=== PATIENT | male | born 1975 | race Caucasian/White ===

== ENCOUNTER 2022-02-27 13:20 | Emergency (ER) | payer MEDICAID ==
[~2022-02-27] VITALS: Ht 170.2 cm; Wt 97.7 kg
[2022-02-27 13:29] VITALS: BP 146/101
== END 2022-02-27 15:08 | disposition home or self-care (01) ==
LOC: ER 13:20
DX: M54.2 Cervicalgia (principal); R20.0 Anesthesia of skin; G89.29 Other chronic pain; M54.59 Other low back pain; M54.9 Dorsalgia, unspecified; V98.8XXA Other specified transport accidents, initial encounter; Y93.89 Activity, other specified; Y92.89 Other specified places as the place of occurrence of the external cause; Y99.8 Other external cause status
CPT/HCPCS: 72040; 99283

== ENCOUNTER 2022-11-01 23:33 | Inpatient (IN) | payer MEDICAID ==
[~2022-11-01] VITALS: Ht 170.2 cm; Wt 77.3 kg
[2022-11-02 00:12] LABS: BASOPHILS # (AUTO) 0.1 X10'3 (0-0.2); BASOPHILS % (AUTO) 0.3 % (0-1); EOSINOPHILS # (AUTO) 0.1 X10'3 (0-0.9); EOSINOPHILS % (AUTO) 0.8 % (0-6); HEMATOCRIT 37.4 % (42.0-52.0); HEMOGLOBIN 12.8 g/dl (14.0-17.9); LYMPHOCYTES % (AUTO) 5.8 % (21-51); MEAN CORPUSCULAR HEMOGLOBIN 30.7 PG (27.0-31.0); MEAN CORPUSCULAR HGB CONC 34.3 g/dL (33.0-36.5); MEAN CORPUSCULAR VOLUME 89.4 FL (78-98); MONOCYTES # (AUTO) 1.1 X10'3 (0-0.9); MONOCYTES % (AUTO) 6.4 % (2-12); NEUTROPHILS # (AUTO) 14.5 X10'3 (1.8-7.7); NEUTROPHILS % (AUTO) 86.7 % (42-75); PLATELET COUNT 238 X10'3 (140-440); RED BLOOD COUNT 4.18 X10'6 (4.70-6.10); RED CELL DISTRIBUTION WIDTH 12.8 % (11.5-14.5); WHITE BLOOD COUNT 16.7 X10'3 (4.5-11.0)
[2022-11-02 00:34] LABS: ALANINE AMINOTRANSFERASE 62 U/L (12-78); ALBUMIN 2.9 G/DL (3.4-5.0); ALBUMIN/GLOBULIN RATIO 0.6 (1.1-1.5); ALKALINE PHOSPHATASE 83 IU/L (46-116); ANION GAP 9 (8-16); ASPARTATE AMINO TRANSFERASE 32 U/L (10-37); BLOOD UREA NITROGEN 10 MG/DL (7-18); BUN/CREATININE RATIO 9.2 (5.4-32.0); CALCIUM 9.2 MG/DL (8.5-10.1); CHLORIDE 96 MMOL/L (99-107); CREATININE 1.09 MG/DL (0.60-1.10); GLUCOSE 205 MG/DL (70-104); MAGNESIUM 1.7 MG/DL (1.5-2.4); POTASSIUM 3.6 MMOL/L (3.5-5.1); SODIUM 130 MMOL/L (135-145); TOTAL CARBON DIOXIDE 25.3 MMOL/L (24-32); TOTAL PROTEIN 7.7 G/DL (6.4-8.2); eGFR 72 ML/MIN
--- NOTE | 2022-11-02 01:00 | NUR ---
Documented assessment reviewed, contract technical writer agrees with this assessment.
[2022-11-02 01:20] LABS: C-REACTIVE PROTEIN 6.76 MG/DL (0.0-0.5)
[2022-11-02 01:23] LABS: ETHANOL < 0.010 GM/DL (0.0-0.010)
[2022-11-02] MEDS ORDERED: normal saline 1000ml 1,000 ML IVB ONE ×2 (02:10→03:55)
--- NOTE | 2022-11-02 02:45 | NUR ---
Attempted to encourage pt to use the urinal several times. Pt nodded and then continued to fall back asleep. Attempted to use the straight cath on the pt, and it was unsuccessful. An additional attempt at using the urinal with the pt. Unsuccessful. Will attempt at obtaining urine later after NS bolus infusion ends.
--- NOTE | 2022-11-02 04:12 | NUR ---
ATTEMPTED TO OBTAIN URINE FROM PT. UNABLE TO. HUNG UP ANOTHER LITER OF NS PER EDMD ORDERS. WILL BLADDER SCAN PT.
[2022-11-02] MEDS ORDERED: CefTRIAXone/D5W-Rocephin 1gm 50 ML IV ONE (05:30)
[2022-11-02] MEDS ORDERED: azithromycin/NS 500mg/250ml 250 ML IV ONE (05:30)
[2022-11-02 06:23] LABS: URINE AMPHETAMINE SCREEN POSITIVE (Neg); URINE BARBITUATE SCREEN NEGATIVE (Neg); URINE BENZODIAZEPINES SCREEN NEGATIVE (Neg); URINE CANNABINOID SCREEN NEGATIVE (Neg); URINE COCAINE SCREEN NEGATIVE (Neg); URINE METHADONE SCREEN NEGATIVE (Neg); URINE OPIATE SCREEN NEGATIVE (Neg); URINE PHENCYCLIDINE SCREEN NEGATIVE (Neg)
[2022-11-02] MEDS ORDERED: HYDROcodone/acetaminophen 10/325mg tab PO PRN (08:25)
[2022-11-02] MEDS ORDERED: morphine 2 MG/ML inj. syringe IV PRN ×2 (08:25)
[2022-11-02] MEDS ORDERED: magnesium 4gm in 100ml NS 100 ML IV PRN (08:25)
[2022-11-02] MEDS ORDERED: mag hydrox/Alum hydrox/simeth 30ml oral suspension PO PRN (08:25)
[2022-11-02] MEDS ORDERED: albuterol 2.5 MG/3 ML nebule NEB PRN (08:25)
[2022-11-02] MEDS ORDERED: ondansetron/PF 4mg/2ml inj IV PRN (08:25)
[2022-11-02] MEDS ORDERED: potassium Cl 20 mEq SR tablet PO PRN ×2 (08:25)
[2022-11-02] MEDS ORDERED: acetaminophen 325mg tablet PO PRN ×2 (08:25)
[2022-11-02] MEDS ORDERED: HYDROcodone/acetaminophen 5mg/325mg tablet PO PRN (08:25)
[2022-11-02] MEDS ORDERED: potassium Cl 40MEQ/1/2NS 520ml 520 ML IV PRN (08:25)
[2022-11-02] MEDS ORDERED: LORazepam 2 mg/ml vial IV PRN (08:55)
[2022-11-02] MEDS ORDERED: haloperidol 5mg tablet PO PRN (08:55)
[2022-11-02] MEDS ORDERED: haloperidol lactate 5mg/ml inj IM PRN (08:55)
[2022-11-02 09:15] LABS: BASOPHILS # (AUTO) 0.1 X10'3 (0-0.2); BASOPHILS % (AUTO) 0.6 % (0-1); EOSINOPHILS # (AUTO) 0.1 X10'3 (0-0.9); HEMATOCRIT 36.4 % (42.0-52.0); HEMOGLOBIN 12.5 g/dl (14.0-17.9); LYMPHOCYTES # (AUTO) 1.2 X10'3 (1.1-4.8); LYMPHOCYTES % (AUTO) 10.9 % (21-51); MEAN CORPUSCULAR HEMOGLOBIN 31.2 PG (27.0-31.0); MEAN CORPUSCULAR HGB CONC 34.4 g/dL (33.0-36.5); MEAN CORPUSCULAR VOLUME 90.9 FL (78-98); MEAN PLATELET VOLUME 10.9 FL (7.4-10.4); MONOCYTES # (AUTO) 0.9 X10'3 (0-0.9); MONOCYTES % (AUTO) 8.5 % (2-12); NEUTROPHILS # (AUTO) 8.4 X10'3 (1.8-7.7); PLATELET COUNT 180 X10'3 (140-440); RED BLOOD COUNT 4.01 X10'6 (4.70-6.10); RED CELL DISTRIBUTION WIDTH 13.4 % (11.5-14.5); WHITE BLOOD COUNT 10.7 X10'3 (4.5-11.0)
--- NOTE | 2022-11-02 09:28 | NUR ---
RT AT BEDSIDE.
[2022-11-02 09:29] LABS: BLOOD UREA NITROGEN 7 MG/DL (7-18); BUN/CREATININE RATIO 7.8 (5.4-32.0); CHLORIDE 100 MMOL/L (99-107); GLUCOSE 123 MG/DL (70-104); POTASSIUM 3.6 MMOL/L (3.5-5.1); SODIUM 134 MMOL/L (135-145); eGFR 90 ML/MIN
[2022-11-02 10:12] LABS: ALANINE AMINOTRANSFERASE 49 U/L (12-78); ALBUMIN 2.5 G/DL (3.4-5.0); ALBUMIN/GLOBULIN RATIO 0.5 (1.1-1.5); ALKALINE PHOSPHATASE 82 IU/L (46-116); ANION GAP 5 (8-16); ASPARTATE AMINO TRANSFERASE 28 U/L (10-37); BILIRUBIN,TOTAL 0.6 MG/DL (0.1-1.0); CALCIUM 8.6 MG/DL (8.5-10.1); TOTAL CARBON DIOXIDE 29.3 MMOL/L (24-32); TOTAL PROTEIN 7.1 G/DL (6.4-8.2)
--- NOTE | 2022-11-02 11:03 | NUR ---
Pt is coughing. Paged RT for a breathing tx at 11:03 as per pt request.
--- NOTE | 2022-11-02 11:09 | NUR ---
RT at bedside. Pt using urinal.
[2022-11-02] MEDS: ipratropium/albuterol 3ml nebule NEB PRN (11:10)
[2022-11-02] MEDS ORDERED: OMEP20CA16 PO (13:58)
[2022-11-02] MEDS ORDERED: GABA600T13 PO (13:58)
--- NOTE | 2022-11-02 16:09 | NUR ---
1100cc urine from urinal. Pt denies pain, but requesting cough drop.
[2022-11-02 19:50] VITALS: BP 130/79
--- NOTE | 2022-11-02 19:50 | NUR ---
PATIENT ADMITTED TO ROOM 346B FROM ER FOR SEPSIS AND PNEUMONIA. PLACED COMFORTABLE IN BED. VITAL SIGNS TAKEN AND RECORDED.
[2022-11-02] MEDS ORDERED: enoxaparin 40mg/0.4ml syringe SQ SCH (20:00)
[2022-11-02] MEDS: docusate sod 100mg capsule PO SCH (20:56)
[2022-11-02] MEDS: K and/or MAG REPLACEMENT MC SCH (21:14)
[2022-11-02 23:00] VITALS: BP 126/71
--- NOTE | 2022-11-03 06:11 | NUR ---
Problems reprioritized. Patient report given, questions answered & plan of care reviewed with KURTIS BARCENAS.
[2022-11-03 06:21] LABS: ALANINE AMINOTRANSFERASE 47 U/L (12-78); ALBUMIN 2.4 G/DL (3.4-5.0); ALBUMIN/GLOBULIN RATIO 0.5 (1.1-1.5); ALKALINE PHOSPHATASE 72 IU/L (46-116); ANION GAP 6 (8-16); ASPARTATE AMINO TRANSFERASE 19 U/L (10-37); BILIRUBIN,TOTAL 0.6 MG/DL (0.1-1.0); BLOOD UREA NITROGEN 3 MG/DL (7-18); BUN/CREATININE RATIO 3.5 (5.4-32.0); CHLORIDE 101 MMOL/L (99-107); CREATININE 0.85 MG/DL (0.60-1.10); GLUCOSE 106 MG/DL (70-104); LIPASE 82 U/L (73-393); PHOSPHORUS 4.2 MG/DL (2.3-4.5); POTASSIUM 3.7 MMOL/L (3.5-5.1); SODIUM 136 MMOL/L (135-145); TOTAL CARBON DIOXIDE 29.5 MMOL/L (24-32); eGFR > 90 ML/MIN
--- NOTE | 2022-11-03 06:23 | NUR ---
Patient in room [facility] 346. I have received report from Cristin Amaral RN and had the opportunity to ask questions and assume patient care.
[2022-11-03] MEDS: K and/or MAG REPLACEMENT MC SCH (06:49)
[2022-11-03 07:02] VITALS: BP 124/78
[2022-11-03 07:28] LABS: BASOPHILS % (AUTO) 0.7 % (0-1); EOSINOPHILS # (AUTO) 0.1 X10'3 (0-0.9); EOSINOPHILS % (AUTO) 1.6 % (0-6); HEMATOCRIT 39.1 % (42.0-52.0); HEMOGLOBIN 13.1 g/dl (14.0-17.9); LYMPHOCYTES # (AUTO) 1.2 X10'3 (1.1-4.8); LYMPHOCYTES % (AUTO) 23.3 % (21-51); MEAN CORPUSCULAR HEMOGLOBIN 30.3 PG (27.0-31.0); MEAN CORPUSCULAR HGB CONC 33.4 g/dL (33.0-36.5); MEAN CORPUSCULAR VOLUME 90.8 FL (78-98); MEAN PLATELET VOLUME 10.3 FL (7.4-10.4); MONOCYTES # (AUTO) 0.6 X10'3 (0-0.9); MONOCYTES % (AUTO) 11.3 % (2-12); NEUTROPHILS # (AUTO) 3.4 X10'3 (1.8-7.7); NEUTROPHILS % (AUTO) 63.1 % (42-75); PLATELET COUNT 233 X10'3 (140-440); RED BLOOD COUNT 4.31 X10'6 (4.70-6.10); RED CELL DISTRIBUTION WIDTH 13.1 % (11.5-14.5); WHITE BLOOD COUNT 5.3 X10'3 (4.5-11.0)
[2022-11-03] MEDS: docusate sod 100mg capsule PO SCH (07:55)
[2022-11-03] MEDS ORDERED: CefTRIAXone/D5W-Rocephin 1gm 50 ML IV SCH (08:00)
[2022-11-03] MEDS ORDERED: multivitamins, therapeutics tablet PO SCH (08:00)
[2022-11-03] MEDS ORDERED: azithromycin/NS 500mg/250ml 250 ML IV SCH (08:00)
[2022-11-03] MEDS: ipratropium/albuterol 3ml nebule NEB PRN (10:45)
--- NOTE | 2022-11-03 11:07 | NUR ---
Malnutrition Consult: Pt admit DX sepsis, PNA, hyponatremia secondary to dehydration, and etoh/meth/tobacco abuse per EMR. Pt unsure wt loss hx per RN malnutrition screen w/ normal strength, trace BLE edema, skin intact, appears WD/WN per ER note, and no scaled wt this admit or prior scaled wt hx per EMR. Pt lacks minimum malnutrition criteria at this time. PO 75% initial clear liquids diet advanced to full liquids WL today per EMR. To start routine thiamine, folic acid, MVI today for etoh hx per EMR. LBM 11/02. Will monitor for diet advancement, PO trends, and nutrition intervention needs this admit. Rec: 1. advance diet as medically indicated to regular 2. monitor PO trends for ONS needs as diet advances 3. routine thiamine, folic acid, MVI for etoh hx 4. routine bowel care 5. scaled wt this admit; subsequent weekly wts Addendum: 11/03/22 at [address] Amended: Links added.
[2022-11-03 11:38] VITALS: BP 121/68
[2022-11-03] MEDS ORDERED: BENZ200C53 PO (11:42)
[2022-11-03] MEDS ORDERED: AZIT500T9 PO (11:42)
[2022-11-03] MEDS ORDERED: CEFD300C3 PO (11:42)
[2022-11-03] MEDS ORDERED: OMEP20CA15 PO (11:48)
[2022-11-03] MEDS ORDERED: GABA600T13 PO (11:48)
--- NOTE | 2022-11-03 13:25 | NUR ---
Received discharge orders, reviewed with patient, understanding verbalized. IV removed with cannula intact. Patient walked to lobby with belongings, accompanied by staff and family member.
[2022-11-03] MEDS ORDERED: pneumococcal 23-VAL P-sac vacc 25 mcg/0.5ml vial IMVAC ONE (14:00)
[2022-11-03] MEDS ORDERED: FLU VACC QS2022-23(6MOS UP)/PF 60 MCG/0.5 ML SYRINGE IMVAC ONE (14:00)
[2022-11-04] MEDS ORDERED: LORazepam 1 MG tablet PO PRN (08:55)
[2022-11-04] MEDS ORDERED: LORazepam 2 mg/ml vial IV PRN (08:55)
--- NOTE | 2022-11-04 10:10 | NUR ---
Received order for consult. Patient was discharged. I called patient and left message.
[2022-11-06] MEDS ORDERED: LORazepam 2 mg/ml vial IV PRN (08:55)
[2022-11-06] MEDS ORDERED: LORazepam 1 MG tablet PO PRN (08:55)
[2022-11-07] MEDS ORDERED: thiamine 100mg tablet PO SCH (08:00)
[2022-11-07] MEDS ORDERED: folic acid 1mg tablet PO SCH (08:00)
== END 2022-11-03 13:34 | disposition home or self-care (01) | DRG 720 ==
LOC: ER 23:34 → ED HOLD 11-02 08:32 → EDBEDREQ 11-02 16:32 → SUR 3N 11-02 19:55
PROVIDERS: ADMIT Family Medicine; ATTEND Family Medicine
DX: A41.9 Sepsis, unspecified organism (principal); E87.1 Hypo-osmolality and hyponatremia; J18.9 Pneumonia, unspecified organism; F15.10 Other stimulant abuse, uncomplicated; Z66 Do not resuscitate; K21.9 Gastro-esophageal reflux disease without esophagitis; F17.210 Nicotine dependence, cigarettes, uncomplicated; Z83.3 Family history of diabetes mellitus; Z80.8 Family history of malignant neoplasm of other organs or systems; Z87.442 Personal history of urinary calculi; Z88.5 Allergy status to narcotic agent
CPT/HCPCS: 36415; 71045; 80053; 80305; 80320; 82948; 83036; 83605; 83690; 83735; 83880; 84100; 84145; 84484; 85025; 85610; 85651; 86140; 87040; 87081; 87502; 87503; 87635; 90686; 90732; 93005; 93971; 94640; 94760; 99285; A4615; C9803; G0378; J0456; J0696; J1650; J7030; J7040; U0003

== ENCOUNTER 2023-01-24 10:03 | Emergency (ER) | payer MEDICAID ==
[~2023-01-24] VITALS: Ht 167.6 cm; Wt 79.0 kg
[~2023-01-24 10:03] MED LIST: AZIT500T9 PO; BENZ200C53 PO; CEFD300C3 PO; GABA600T13 PO; OMEP20CA15 PO; OMEP20CA16 PO
[2023-01-24 10:33] VITALS: BP 120/91
--- NOTE | 2023-01-24 10:49 | NUR ---
Pt in FTA, Pt c/o R hand swelling x6 days. C/o numbness and pain. Pt educated to POC. Pt in agreement. Pending providers eval and treatment.
[2023-01-24] MEDS ORDERED: PER5325T PO ×3 (11:37→13:53)
[2023-01-24 11:56] LABS: ALANINE AMINOTRANSFERASE 26 U/L (12-78); ALBUMIN 3.3 G/DL (3.4-5.0); ALBUMIN/GLOBULIN RATIO 0.8 (1.1-1.5); ALKALINE PHOSPHATASE 102 IU/L (46-116); ANION GAP 9 (8-16); ASPARTATE AMINO TRANSFERASE 26 U/L (10-37); BLOOD UREA NITROGEN 11 MG/DL (7-18); BUN/CREATININE RATIO 11.3 (10.0-20.0); CALCIUM 9.3 MG/DL (8.5-10.1); CHLORIDE 101 MMOL/L (99-107); CREATININE 0.97 MG/DL (0.60-1.10); GLUCOSE 119 MG/DL (70-104); POTASSIUM 3.9 MMOL/L (3.5-5.1); SODIUM 136 MMOL/L (135-145); TOTAL CARBON DIOXIDE 26.2 MMOL/L (24-32); TOTAL PROTEIN 7.5 G/DL (6.4-8.2); eGFR 82 ML/MIN
[2023-01-24] MEDS ORDERED: iohexol 300mg/ml 100ml inj. ONE (12:11)
[2023-01-24 13:05] LABS: BASOPHILS % (AUTO) 0.6 % (0-1); EOSINOPHILS # (AUTO) 0.1 X10'3 (0-0.9); EOSINOPHILS % (AUTO) 0.9 % (0-6); HEMATOCRIT 41.2 % (42.0-52.0); HEMOGLOBIN 14.2 g/dl (14.0-17.9); LYMPHOCYTES # (AUTO) 1.4 X10'3 (1.1-4.8); LYMPHOCYTES % (AUTO) 17.5 % (21-51); MEAN CORPUSCULAR HEMOGLOBIN 30.3 PG (27.0-31.0); MEAN CORPUSCULAR HGB CONC 34.5 g/dL (33.0-36.5); MEAN CORPUSCULAR VOLUME 87.8 FL (78-98); MONOCYTES # (AUTO) 0.9 X10'3 (0-0.9); MONOCYTES % (AUTO) 11.1 % (2-12); NEUTROPHILS # (AUTO) 5.5 X10'3 (1.8-7.7); NEUTROPHILS % (AUTO) 69.9 % (42-75); RED BLOOD COUNT 4.69 X10'6 (4.70-6.10); RED CELL DISTRIBUTION WIDTH 13.3 % (11.5-14.5); WHITE BLOOD COUNT 7.8 X10'3 (4.5-11.0)
[2023-01-24] MEDS ORDERED: SULF1TAB49 PO (13:53)
[2023-01-24] MEDS ORDERED: AMOX-580 PO (13:53)
[2023-01-24] MEDS ORDERED: ampicillin/sulbac 3gm/NS 100ml 100 ML IV SCH (14:00)
== END 2023-01-24 14:02 | disposition home or self-care (01) ==
LOC: ER 10:04
DX: L03.113 Cellulitis of right upper limb (principal); K21.9 Gastro-esophageal reflux disease without esophagitis; G89.29 Other chronic pain; M54.9 Dorsalgia, unspecified; F17.200 Nicotine dependence, unspecified, uncomplicated; F15.10 Other stimulant abuse, uncomplicated; Z88.5 Allergy status to narcotic agent; Z79.899 Other long term (current) drug therapy; Z79.1 Long term (current) use of non-steroidal anti-inflammatories (NSAID); Z79.2 Long term (current) use of antibiotics
CPT/HCPCS: 73201; 80053; 83605; 85025; 87040; 99285; J3490; Q9967

== ENCOUNTER 2023-06-26 14:10 | Emergency (ER) | payer MEDICAID ==
[~2023-06-26] VITALS: Ht 170.2 cm; Wt 84.1 kg
[2023-06-26 14:26] VITALS: BP 131/82; PULSE 81; RESP 18; TEMP 97.9; O2SAT 100
== END 2023-06-26 19:02 | disposition left against medical advice (07) ==
LOC: ER 14:11
DX: M79.644 Pain in right finger(s) (principal); Z53.21 Procedure and treatment not carried out due to patient leaving prior to being seen by health care provider
CPT/HCPCS: 99281

== ENCOUNTER 2025-02-07 20:42 | Emergency (ER) | payer MEDICAID ==
[~2025-02-07 20:42] MED LIST changes: +GABA-1405 PO; -GABA600T13 PO
== END 2025-02-07 22:23 | disposition left against medical advice (07) ==
LOC: ER 20:43
DX: Z00.8 Encounter for other general examination (principal); Z53.21 Procedure and treatment not carried out due to patient leaving prior to being seen by health care provider

== ENCOUNTER 2025-02-09 22:03 | Emergency (ER) | payer MEDICAID ==
[~2025-02-09] VITALS: Ht 167.6 cm; Wt 71.2 kg
[2025-02-09 22:11] VITALS: TEMP 97.7
[2025-02-09 22:40] LABS: BASOPHILS # (AUTO) 0.1 X10'3 (0-0.2); BASOPHILS % (AUTO) 0.8 % (0-1); EOSINOPHILS # (AUTO) 0.2 X10'3 (0-0.9); EOSINOPHILS % (AUTO) 2.1 % (0-6); HEMATOCRIT 42.9 % (42.0-52.0); HEMOGLOBIN 14.7 g/dl (14.0-17.9); LYMPHOCYTES # (AUTO) 1.3 X10'3 (1.1-4.8); LYMPHOCYTES % (AUTO) 16.1 % (21-51); MEAN CORPUSCULAR HGB CONC 34.3 g/dL (33.0-36.5); MEAN CORPUSCULAR VOLUME 87.3 FL (78-98); MEAN PLATELET VOLUME 8.9 FL (7.4-10.4); MONOCYTES # (AUTO) 0.6 X10'3 (0-0.9); MONOCYTES % (AUTO) 8.1 % (2-12); NEUTROPHILS # (AUTO) 5.8 X10'3 (1.8-7.7); NEUTROPHILS % (AUTO) 72.9 % (42-75); PLATELET COUNT 228 X10'3 (140-440); RED BLOOD COUNT 4.91 X10'6 (4.70-6.10); RED CELL DISTRIBUTION WIDTH 13.8 % (11.5-14.5)
[2025-02-09 22:48] LABS: ALBUMIN 3.6 G/DL (3.4-5.0); ANION GAP 10 (8-16); BLOOD UREA NITROGEN 13 MG/DL (7-18); BUN/CREATININE RATIO 10.7 (10.0-20.0); CHLORIDE 103 MMOL/L (99-107); CREATININE 1.21 MG/DL (0.60-1.10); GLUCOSE 187 MG/DL (70-104); POTASSIUM 3.7 MMOL/L (3.5-5.1); SODIUM 140 MMOL/L (135-145); eCRCL 65 ML/MIN; eGFR 63 ML/MIN
[2025-02-10] MEDS ORDERED: SULF1TAB49 PO (00:35)
--- NOTE | 2025-02-10 00:35 | Physician Documentation ---
History of Present Illness ~ Chief Complaint: Arm Pain Stated Complaint: ARM PAIN Time Seen by MD: 00:25 Primary Medical Doctor: jose saez, [facility] HPI This is a 49-year-old gentleman who presents for evaluation of pain, swelling, redness in his right upper extremity/forearm. He states that �it might have been a spider bite... It might have been because I slammed dope�. Similar to prior cellulitis. No particular palliating or aggravating factors. Did not attempt to treat it. Denies any fever or chills. Denies any other symptoms. Uses drugs. Tetanus within 5 years: Yes (2022) Medication Reconciliation Allergies: Coded Allergies: codeine (Verified Allergy, Unknown, vomiting, 02/09/25) Scheduled Azithromycin (Azithromycin), 1 TAB PO DAILY Cefdinir* (Cefdinir*), 1 CAP PO Q12H Gabapentin (Gabapentin), 1 TAB PO TID, (Reported) Gabapentin (Gabapentin), 1 TAB PO Q8H Omeprazole (Omeprazole), 1 CAP PO DAILY, (Reported) Omeprazole (Omeprazole), 1 CAP PO DAILY Scheduled PRN Benzonatate (Benzonatate), 1 CAP PO Q8H PRN for cough & congestion Past Medical History Past Medical History: Pneumonia, GERD, Chronic Pain, Chronic Back Pain Past Surgical History: orthopedic surgeries Patient History: FH: cancer FATHER FH: diabetes mellitus MOTHER FH: skin cancer MOTHER Alcohol Use: Abuse Drug Use: methamphetamine Lives In: Home Review of Systems ROS 10 point review of systems was performed and unless noted above in HPI is negative for acute process/complaint. Physical Exam Vital Signs: Temperature: 97.7, Source: Temporal, Heart Rate: 0, Respiratory Rate: 15, BP: 156/98, Pulse Oximetry: 100, Weight: 71.150 Physical Exam Physical examination: GENERAL: Awake, alert, oriented, GCS 15, no apparent distress, non-toxic appe aring, answers questions, follows commands appropriately. HEENT: Atraumatic, normocephalic, pupils equal, extraocular muscles intact Active gross movements, sclerae anicteric, mucus membranes moist, no stridor. NECK: Midline, no JVD CARDIOVASCULAR: Good skin perfusion without evidence of pallor, mottling. PULMONARY: Nonlabored, symmetric chest rise, no audible wheezing, no accessory muscle use, no respiratory distress, speaking in full sentences. GASTROINTESTINAL: Not distended. NEUROLOGIC: Lucid with normal mental status. Normal facial symmetry. Moves all extremities symmetrically and with purpose. No truncal ataxia. Speech is fluid without evidence of dysarthria or aphasia, no focal deficits appreciated. EXTREMITIES: Acute deformities Skin: warm, dry PSYCHIATRIC: Normal affect, normal insight, normal concentration. Focused exam: Right upper forearm was examined. There is erythema, calor, without crepitus or violaceous changes, no fluctuance. Neurovascularly intact distally. Progress Results/Orders Results/Orders Orders - MILTON SALGADO DO Culture Blood (02/09/25 22:13) Urinalysis, Cult If Indicated (02/09/25 22:13) Monitor (02/09/25 22:13) Oxygen (02/09/25 22:13) Saline Lock (02/09/25 22:13) Lactic,2hr (02/09/25 23:58) Completed Orders - MILTON SALGADO DO Cbc/Diff (02/09/25 22:13) Procalcitonin (02/09/25 22:13) BMP (02/09/25 22:13) Lacticsepsis (02/09/25 22:13) Vital Signs 02/09/25 22:11 Temp 97.7 Pulse 0 Resp 15 B/P (MAP) 156/98 Pulse Ox 100 Laboratory Tests Test 02/09/25 22:28 02/09/25 23:59 White Blood Count 8.0 Red Blood Count 4.91 Hemoglobin 14.7 Hematocrit 42.9 Mean Corpuscular Volume 87.3 Mean Corpuscular Hemoglobin 30.0 Mean Corpuscular Hemoglobin Concent 34.3 Red Cell Distribution Width 13.8 Platelet Count 228 Mean Platelet Volume 8.9 Neutrophils (%) (Auto) 72.9 Lymphocytes (%) (Auto) 16.1 L Monocytes (%) (Auto) 8.1 Eosinophils (%) (Auto) 2.1 Basophils (%) (Auto) 0.8 Neutrophils # (Auto) 5.8 Lymphocytes # (Auto) 1.3 Monocytes # (Auto) 0.6 Eosinophils # (Auto) 0.2 Basophils # (Auto) 0.1 CBC Comment Sodium Level 140 Potassium Level 3.7 Chloride Level 103 Carbon Dioxide Level 27.0 Anion Gap 10 Blood Urea Nitrogen 13 Creatinine 1.21 H Estimated GFR/1.73 m2 63 BUN/Creatinine Ratio 10.7 Glucose Level 187 H Lactic Acid Level 2.8 H Calcium Level 9.0 Albumin 3.6 Procalcitonin < 0.05 Chemistry Comments Medical Decision Making Findings Facility Status: [facility], [facility] process The plan was discussed with the patient, who demonstrates clear understanding of the plan and is in agreement with the plan unless otherwise noted in the chart. All questions have been answered, all concerns were addressed unless otherwise documented. I was available throughout their ED stay for frequent reassessment and questions. Differential Diagnoses (considered and possible or likely): [Right forearm cellulitis, less likely abscess, less likely necrotizing fasciitis, clinically highly unlikely to be osteomyelitis] ??Differential Diagnoses (considered and unlikely, not requiring evaluation currently): [See above] MDM Data Please see [facility] for the following: Independent Historians and external Records Review. Historian: [Patient] Independent Historians: ?[None] Medication Management: [Reviewed medication list] Social History and determinants: [Reviewed] Please see the body of the note for the following: Any independent interpretations of ECG, imaging studies. All vitals signs/haemodynamics, ordered tests were independently reviewed and interpreted by myself. Nursing triage complaint and vitals reviewed, additional nursing notes were reviewed as available and I agree unless otherwise noted or documented in contradiction in the chart Vital Signs: Independently reviewed Labs: Independently interpreted Imaging: Independently interpreted Old Medical Records: Independently reviewed, see [facility] for relevant summary and information Additionally notably showing: [Hemodynamically stable] Tests considered but not ordered include: [Hematologic workup and imaging has been considered but does not appear to be necessary given clinical nature of diagnosis] Social Determinants of Health Impact: Patient was evaluated in [facility], or [facility] [place] to healthcare due to below par ratio of patient to medical providers. [] Comorbid Conditions Impacting Present Evaluation and Care/Treatment: [History of cellulitis and IV drug use] Management Discussions with other Healthcare Providers: [None] Treatment and Disposition Medication Management (Given or considered): [Initial dose of antibiotics]. See EMR for details Consideration for Hospitalization/Escalation/Deescalation of Care: Admission for observation has been considered, [however the patient is able to tolerate p.o., their symptoms are controlled, they are able to rely on oral medications, and their chief complaint/diagnosis can be managed on outpatient basis.] ?ED Course:?[No clinical deterioration] ?Shared decision making:?[Patient is hemodynamically stable for discharge home with follow with their primary care provider. [ ] Specific and cautious return precautions provided and discussed with full understanding. Any incidental findings were also discussed and follow up recommendations given. [] All questions answered. Patient/family were able to verbalize back return precautions. Patient/family agree to plan. Copies of imaging and laboratory studies were provided.] Code status:?FULL Please see the full Electronic Medical Record for full details of nursing documentation, medications list, other records of complete past medical history and conditions, vital signs, laboratory studies, and any radiologic study interpretations by radiologists. Portions of this note were completed using [employer] dictation software and as a result there may exist minor errors in spelling. I have reviewed elements of past family and social history and agree as included in note. Departure Disposition: HOME / SELF CARE / HOMELESS Impression: Primary Impression: Right forearm cellulitis Condition: Improved Discharge Instructions: Cellulitis, Adult, [id number] Referrals: NO PRIMARY CARE PROVIDER (PCP) Prescriptions Sulfamethoxazole/Trimethoprim (Bactrim Ds Tablet) 800 Mg-160 Mg Tablet 1 TAB PO Q12H for 10 Days, #20 TAB Prov: MILTON SALGADO DO 02/10/25 Education Educated: Patient Educated regarding: diagnosis, treatment, prognosis, need for follow up Signature Scribe Signature: No scribe Attestation: This note accurately reflects clinical decisions, work performed by myself, Milton Salgado, she is MILTON SALGADO DO February 10, 2025 00:35
[2025-02-10 00:39] VITALS: BP 148/98; PULSE 110; RESP 17; O2SAT 98
[2025-02-10] MEDS: sulfamethoxazole/trimethoprim DS (800/160mg) tablet PO ONE (00:42)
== END 2025-02-10 00:46 | disposition home or self-care (01) ==
LOC: ER 22:03
DX: L03.113 Cellulitis of right upper limb (principal); Z88.5 Allergy status to narcotic agent; Z88.8 Allergy status to other drugs, medicaments and biological substances; F15.90 Other stimulant use, unspecified, uncomplicated
CPT/HCPCS: 36415; 80048; 83605; 84145; 85025; 87040; 99283

== ENCOUNTER 2025-05-18 02:46 | Inpatient (IN) | payer MEDICAID ==
[~2025-05-18] VITALS: Ht 167.6 cm; Wt 87.9 kg
[2025-05-18 03:03] LABS: MEAN PLATELET VOLUME 7.9 FL (7.4-10.4); RED CELL DISTRIBUTION WIDTH 14.0 % (11.5-14.5)
[2025-05-18 03:21] LABS: CREATININE 1.08 MG/DL (0.60-1.10); TOTAL CARBON DIOXIDE 30.8 MMOL/L (24-32); eCRCL 73 ML/MIN; eGFR 72 ML/MIN
--- NOTE | 2025-05-18 03:23 | Physician Documentation ---
History of Present Illness ~ Chief Complaint: Groin Pain Stated Complaint: ABDOMINAL PAIN Time Seen by MD: 03:22 Primary Medical Doctor: [facility] Patient presents to the emergency room for evaluation of abdominal pain. He states he has been having some abdominal pain chronically however got worse over this past week. He does endorse drinking alcohol daily. No prior instances. Bladder and bowel reported to be normal. No fevers Medication Reconciliation Allergies: Coded Allergies: codeine (Verified Allergy, Unknown, vomiting, 02/09/25) Scheduled Azithromycin (Azithromycin), 1 TAB PO DAILY Cefdinir* (Cefdinir*), 1 CAP PO Q12H Gabapentin (Gabapentin), 1 TAB PO TID, (Reported) Gabapentin (Gabapentin), 1 TAB PO Q8H Omeprazole (Omeprazole), 1 CAP PO DAILY, (Reported) Omeprazole (Omeprazole), 1 CAP PO DAILY Scheduled PRN Benzonatate (Benzonatate), 1 CAP PO Q8H PRN for cough & congestion Past Medical History Past Medical History: Pneumonia, GERD, Chronic Pain, Chronic Back Pain Past Surgical History: orthopedic surgeries Patient History: FH: cancer FATHER FH: diabetes mellitus MOTHER FH: skin cancer MOTHER Alcohol Use: Abuse Drug Use: methamphetamine Lives In: Home Review of Systems ROS All review of systems negative except as per HPI Physical Exam Vital Signs: Temperature: 98.0, Heart Rate: 79, Respiratory Rate: 16, BP: 132/84, Pulse Oximetry: 100, Weight: 87.900 Oxygen Flow Rate: 0 General Appearance General: Patient is awake, alert, oriented x4 in mild distress Head: Normocephalic and atraumatic. Eyes: Conjunctival normal. EOMI. PERRL. ENT: Mucous membranes moist. Neck: Supple, trachea is midline. Chest: Clear to auscultation bilaterally without rales, rhonchi, or wheezes. There is no accessory muscle use or retractions. Cardiac: RRR without murmurs, gallops, or rubs. Abd: Soft, nondistended, mild diffuse tenderness to palpation without peritonitis Progress Results/Orders Results/Orders Orders - ADAL CHAVEZ MD Urinalysis, Cult If Indicated (05/18/25 02:47) Ct Abdomen Pelvis (05/18/25 03:54) Drug Screen, Urine (05/18/25 03:26) Page Hospitalist (05/18/25 04:29) Fill Out Med Reconciliation (05/18/25 04:29) Completed Orders - ADAL CHAVEZ MD Cbc/Diff (05/18/25 02:47) Lipase (05/18/25 02:47) CMP (05/18/25 02:47) Ct Abdomen Pelvis (05/18/25 03:54) Ondansetron Inj. (Zofran 4mg/2ml Vial) (05/18/25 03:30) Fentanyl/Pf (Fentanyl 0.05 Mg/Ml Syringe (05/18/25 03:30) Ketorolac Trometh 15mg/Ml Vial (Toradol (05/18/25 03:30) Iohexol 300mg/Ml 100ml Inj. (Omnipaque-3 (05/18/25 03:36) Medications Received in ER Medications (Trade) Dose Ordered Sig/June Route PRN Reason Start Time Stop Time Status Last Admin Dose Admin (Zofran 4mg/2ml vial) 4 mg ONCE ONCE IV 05/18/25 03:30 05/18/25 03:31 DC 05/18/25 03:41 4 MG (fentaNYL 0.05 MG/ML syringe) 50 mcg ONCE ONCE IV 05/18/25 03:30 05/18/25 03:31 DC 05/18/25 03:42 50 MCG (Toradol injection) 15 mg ONCE ONCE IV 05/18/25 03:30 05/18/25 03:31 DC 05/18/25 03:41 15 MG Vital Signs 05/18/25 05/18/25 05/18/25 05/18/25 02:56 03:18 03:41 03:42 Temp 98.0 Pulse 79 Resp 16 16 16 B/P (MAP) 132/84 Pulse Ox 100 O2 Flow Rate 0 05/18/25 04:24 Pulse 86 Resp 16 B/P (MAP) 150/87 (108) Pulse Ox 98 O2 Flow Rate 0 Laboratory Tests Test 05/18/25 02:56 White Blood Count 8.1 Red Blood Count 4.95 Hemoglobin 15.1 Hematocrit 43.5 Mean Corpuscular Volume 87.9 Mean Corpuscular Hemoglobin 30.6 Mean Corpuscular Hemoglobin Concent 34.8 Red Cell Distribution Width 14.0 Platelet Count 282 Mean Platelet Volume 7.9 Neutrophils (%) (Auto) 61.5 Lymphocytes (%) (Auto) 23.2 Monocytes (%) (Auto) 9.5 Eosinophils (%) (Auto) 5.0 Basophils (%) (Auto) 0.8 Neutrophils # (Auto) 5.0 Lymphocytes # (Auto) 1.9 Monocytes # (Auto) 0.8 Eosinophils # (Auto) 0.4 Basophils # (Auto) 0.1 CBC Comment Sodium Level 136 Potassium Level 4.2 Chloride Level 101 Carbon Dioxide Level 30.8 Anion Gap 4 L Blood Urea Nitrogen 14 Creatinine 1.08 Estimated GFR/1.73 m2 72 BUN/Creatinine Ratio 13.0 Glucose Level 101 Calcium Level 9.1 Total Bilirubin 0.9 Aspartate Amino Transf (AST/SGOT) 18 Alanine Aminotransferase (ALT/SGPT) 28 Alkaline Phosphatase 95 Total Protein 7.4 Albumin 3.7 Globulin 3.7 Albumin/Globulin Ratio 1.0 L Lipase > 375 H Chemistry Comments Medical Decision Making Findings Patient presents to the emergency room with abdominal pain as per HPI. Differentials include but are not limited to gastritis appendicitis cholecystitis pancreatitis diverticulitis small-bowel obstruction kidney stone therefore emergent labs and imaging indicated. Patient was significantly elevated lipase that has off the charts and we will require admission. IV fluids initiated as well as pain management. Patient does endorse daily drinking which could be causing his pancreatitis. I will defer to admitting physician for further workup. Departure Admitted to Inpatient Unit: yes, to hospitalist Impression: Primary Impression: Pancreatitis Condition: Guarded Referrals: NO PRIMARY CARE PROVIDER (PCP) Signature Scribe Signature: No scribe Attestation: The note accurately reflects work and decisions made by me.Adal Chavez MD 05/18/25 04:32 ADAL CHAVEZ MD May 18, 2025 03:23
[2025-05-18] MEDS ORDERED: iohexol 300mg/ml 100ml inj. ONE (03:36)
[2025-05-18] MEDS: ketorolac trometh 15mg/ml vial 15 MG/ML ML IV ONE (03:41)
[2025-05-18] MEDS: ondansetron/PF 4mg/2ml inj IV ONE (03:41)
[2025-05-18] MEDS: fentaNYL/PF 50MCG/1 ML 2ML syringe IV ONE (03:42)
[2025-05-18] MEDS: normal saline 1000ML IV soln IVB ONE (04:39)
--- NOTE | 2025-05-18 04:43 | RADIOLOGY REPORT ---
Exam: CT CT ABDOMEN PELVIS W/ IV CONTRAST History: Right lower quadrant abdominal pain Comparison Study: None Technique: Multidetector spiral CT of the abdomen was performed from lung bases to pubic symphysis. A xial imaging was performed with intravenous contrast following the uneventful administration of 100 m l Omnipaque 300. Coronal and sagittal multiplanar reformats were obtained from the axial data set by the technologist. Radiation Dose : 1. Abdomen/Pelvis: CTDIvol 19.5 mGy, DLP 1061.3 mGy*cm. Findings: Lung Bases: Lung bases are clear. Visualized portions of the heart and pericardium are unremarkable. Liver: The liver is normal in size. No focal lesions. Gallbladder and Biliary Tree: The gallbladder is underdistended. No intrahepatic or extrahepatic bili maninder ductal dilatation. Spleen: Enlarged measuring 13.2 cm. Pancreas: The pancreas enhances normally and there are no focal lesions. The main pancreatic duct is not dilated Adrenal Glands: Unremarkable Kidneys: Kidneys enhance symmetrically. Punctate nonobstructive right intrarenal calculi are present measuring up to 3 mm. Punctate nonobstructive left intrarenal calculi are present measuring up to 3 mm. GI tract: The stomach is grossly normal in appearance. No evidence of small bowel wall thickening or abnormal dilatation to suggest bowel obstruction. Wall thickening of the rectosigmoid colon which cou ld be secondary to underdistention however colitis is not excluded. Normal caliber appendix without i nflammatory changes. Peritoneum/mesentery/retroperitoneum. No evidence of free intraperitoneal air. No ascites. Nodes: Increased number of retroperitoneal lymph nodes measuring up to 8 mm in short axis. Abdominal Wall: Unremarkable. Vasculature: Abdominal aorta and main branches are unremarkable. Normal vascular enhancement. Urinary Bladder: Grossly unremarkable for degree of distention. Pelvic Organs: Enlarged prostate measuring 4.8 cm. Musculoskeletal: No aggressive focal bony lesions, acute fractures or dislocation. IMPRESSION: 1. Mucosal thickening of the rectosigmoid colon which could be related to underdistention however, co litis is not excluded. 2. Increased number of retroperitoneal lymph nodes measuring up to 9 mm in short axis. Etiology is u ncertain. Correlation with patient's symptoms as well as laboratory values recommended. 3. Nonobstructive bilateral intrarenal calculi. 4. Prostatomegaly.
[2025-05-18] MEDS ORDERED: magnesium hydroxide 30ml (MOM) UD suspension PO PRN (05:00)
[2025-05-18] MEDS ORDERED: ondansetron/PF 4mg/2ml inj IV PRN (05:00)
[2025-05-18] MEDS ORDERED: potassium Cl 20 mEq SR tablet PO PRN ×2 (05:00)
[2025-05-18] MEDS ORDERED: potassium Cl 40MEQ/1/2NS 520ml 520 ML IV PRN (05:00)
[2025-05-18] MEDS ORDERED: magnesium sulf-water 2g/50mL 50 ML IV PRN (05:00)
[2025-05-18] MEDS ORDERED: mag hydrox/Alum hydrox/simeth 30ml oral suspension PO PRN (05:00)
[2025-05-18] MEDS ORDERED: metoclopramide 5 mg/ml inj IV PRN (05:00)
[2025-05-18] MEDS ORDERED: magnesium sulf-water 4G/100mL 100 ML IV PRN (05:00)
[2025-05-18] MEDS ORDERED: magnesium Cl slow-release 64mg tablet PO PRN (05:00)
[2025-05-18] MEDS: ringers solution, lacted 1,000 ML IV SCH (05:05)
[2025-05-18] MEDS ORDERED: acetaminophen 1,000mg/100ml IV 100 ML IV PRN (05:20)
--- NOTE | 2025-05-18 05:28 | HISTORY AND PHYSICAL-Residence ---
History & Physical Providers to CC Resident Creating Document: SANDRINE SCHMIDT RES ~ History of Present Illness Primary Medical Doctor: reg franc[facility] Reason for Admit\Complaint: Acute pancreatitis History of Present Illness This is a 49-year-old male patient with past medical history of treated hepatitis-C,hiatal hernia, alcohol use disorder, methamphetamine/cocaine use disorder, presented to the ER for sudden severe (8/10 in intensity) periumbilical/right upper quadrant pain radiating to the right inguinal region that started yesterday around 7 p.m. Patient has had similar episodes of pain in the past but not as severe as it was yesterday. There is no associated nausea, vomiting, diarrhea or fever. He also denies chest pain or shortness for breath. The pain has subsided after initial treatment and he denies any other symptoms. Patient drinks approximately five shots daily, yesterday he had one beer and consumed cocaine. Allergies: Coded Allergies: codeine (Verified Allergy, Unknown, vomiting, 02/09/25) Home Medications Home Medications Active Omeprazole 20 Mg Capsule.dr 1 Cap PO DAILY 30 Days Gabapentin 600 Mg Tablet 1 Tab PO Q8H 30 Days Benzonatate 200 Mg Capsule 1 Cap PO Q8H PRN Cefdinir* (Cefdinir) 300 Mg Capsule 1 Cap PO Q12H Azithromycin 500 Mg Tablet 1 Tab PO DAILY 4 Days Reported Omeprazole 20 Mg Capsule.dr 1 Cap PO DAILY Gabapentin 600 Mg Tablet 1 Tab PO TID Past Medical History Past Medical History Hepatitis-C Hiatal hernia Alcohol use disorder Methamphetamine/cocaine use disorder Past Surgical History Surgical History Comment Bilateral carpal tunnel Cervical surgery Hemorrhoidectomy Left knee surgery Family History Family History: FH: cancer FATHER FH: diabetes mellitus MOTHER FH: skin cancer MOTHER Past Social History Social History Comment Patient smokes half pack a day since he was 13 years old. He drinks five shots of alcohol daily and consumes methamphetamine, cocaine, mushrooms and ketamine. Patient is homeless. Smoking: Less than 1 pack/day Alcohol Use: Abuse Drug Use: Methamphetamine, Cocaine, Other (Mushrooms, ketamine) Lives In: Homeless Occupation: unemployed ROS Constitutional: Reports: malaise, weakness Eyes: Reports: no symptoms reported ENT: Reports: no symptoms reported Respiratory: Reports: no symptoms reported Cardiovascular: Reports: no symptoms reported Gastrointestinal: Reports: abdominal pain, poor appetite Genitourinary: Reports: no symptoms reported Neurological: Reports: no symptoms reported Musculoskeletal: Reports: no symptoms reported Integumentary: Reports: no symptoms reported Allergic/Immunologic: Reports: no symptoms reported Hematologic/Lymphatic: Reports: no symptoms reported Endocrine: Reports: no symptoms reported Psychiatric: Reports: no symptoms reported Exam Vitals: Vital Signs Date Time Temp Pulse Resp B/P (MAP) Pulse Ox O2 Delivery O2 Flow Rate FiO2 05/18/25 04:24 86 16 150/87 (108) 98 0 05/18/25 02:56 98.0 General: General: Awake and Alert, no acute distress. HEENT: Conjunctiva pink, Sclera clear, Mucus Membranes moist. Neck: Supple without masses and tenderness. Resp: Unlabored. Lungs clear to auscultation bilaterally. Heart: Regular Rate and rhythm, normal S1 and S2 without murmur, rub or gallop. Abdomen: Mildly tender in periumbilical region. Abdomen is soft and nondistended. Positive bowel sounds. No guarding or rebound. No hepatosplenomegaly or palpable masses. Extremities: No cyanosis,clubbing or edema. Skin: Warm and Dry. Diagnostic Data Last Recorded Lab Results: 05/18/25 0256 05/18/25 0256 Counseling Services Smoking & Tobacco Cessation: 3-10 Minutes Advance Care Planning Advanced Care plannin - 30 Minutes (I discussed with advanced care directives and the patient wants to be DNR) Additional Plan Assessment This is a 49-year-old male patient with past medical history of treated hepatitis-C,hiatal hernia, alcohol use disorder, methamphetamine/cocaine use disorder, admitted for acute pancreatitis most likely from alcoholic etiology. Patient is NPO, being treated with IV fluids and symptomatic medication. Plan Acute pancreatitis, most likely from alcoholic etiology [place]'s criteria 0 points on admission, BISAP 0 points No signs of severity Lipase > 375 WBC 8.1, Cr 1.08, BUN [address]: Mucosal thickening of the rectosigmoid colon which could be related to underdistention however, colitis is not excluded. Increased number of retroperitoneal lymph nodes measuring up to 9 mm in short axis. Etiology is uncertain. Ordered amylase, LDH, ESR, C-reactive protein, lactic acid 2000 mL of normal saline at presentation Hydration with lactated Ringer at 125 mL/hr Analgesia with Tylenol and morphine Ordered NPO. Progress to liquid diet as tolerated. Alcohol use disorder Cocaine use disorder Methamphetamine use disorder Ordered ethanol level, pending Ordered drug screen, pending Ordered social service and substance use navigator History of hepatitis C, treated Ordered hepatitis panel and HIV antibody Hiatal hernia Ordered pantoprazole 40 mg daily Code Status: DNR DVT prophylaxis: Heparin Analgesia/sedation: Tylenol/Morphine Line/tube: PIV GI prophylaxis: Pantoprazole Nutrition: Regular diet Physical therapy: Yes Disposition: Admit to surgical floor. Rounded on and examined patient with resident Cause of abdominal pain may be pancreatitis, but I'm not fully confident in this given the normal appearance of the pancreas on CT and the fact that the pain began over one week since his last episode of heavy ETOH consumption. If pancreatitis may also be caused by hypertriglyceridemia, will add on level. If amylase comes back normal or if patient has ongoing pain, fever, or leukocytosis would evaluate further for cecal diverticulitis, occult appendicitis or other. Plan reviewed with bedside team. Patient seen through remote audiovisual assessment through HIPAA compliant setup. All labs, flowsheets, and images reviewed Cumulative nonprocedural care time spent in directed patient care = 30 min Date of Service: May 18, 2025 Billing Provider: PATRIA KOENIG MD, LUCAS, SELIN May 18, 2025 05:28 PATRIA KOENIG MD May 18, 2025 06:50
[2025-05-18 06:40] LABS: LACTATE DEHYDROGENASE 248 U/L (85-227)
[2025-05-18] MEDS ORDERED: NO HOME MEDS (06:45)
[2025-05-18 06:46] LABS: HIV ANTIBODY 1&2 RAPID NON-REACTIVE (Neg)
[2025-05-18 06:55] LABS: CHOL/HDL RATIO 3.3 (0.00-4.99); LDL CHOLESTEROL 81 MG/DL (50-100)
[2025-05-18 07:04] VITALS: BP 136/81; PULSE 81; RESP 16; TEMP 97.9; O2SAT 100
[2025-05-18 07:04] LABS: ETHANOL < 10 MG/DL (<10)
[2025-05-18 07:14] LABS: LEUKOCYTE ESTERASE ,URINE NEGATIVE (Neg); NITRITES, URINE NEGATIVE (Neg); OCCULT BLOOD,URINE NEGATIVE (Neg)
[2025-05-18 07:24] LABS: UA COLLECTION TYPE URINAL; URINE AMPHETAMINE SCREEN POSITIVE (Neg); URINE BARBITUATE SCREEN NEGATIVE (Neg); URINE BENZODIAZEPINES SCREEN NEGATIVE (Neg); URINE CANNABINOID SCREEN NEGATIVE (Neg); URINE COCAINE SCREEN POSITIVE (Neg); URINE METHADONE SCREEN NEGATIVE (Neg); URINE OPIATE SCREEN NEGATIVE (Neg); URINE PHENCYCLIDINE SCREEN NEGATIVE (Neg)
[2025-05-18] MEDS: K and/or MAG REPLACEMENT MC SCH (08:00)
[2025-05-18] MEDS: docusate sod 100mg capsule PO SCH (08:00)
[2025-05-18] MEDS: heparin, porcine 5000 units/ml vial SQ SCH (09:05)
[2025-05-18 10:00] VITALS: BP 124/82; PULSE 67; RESP 18; TEMP 97.6; O2SAT 99
[2025-05-18 18:00] VITALS: BP 127/83; PULSE 63; RESP 18; TEMP 97.2; O2SAT 99
--- NOTE | 2025-05-18 18:35 | PROGRESS NOTE- Residence ---
Progress Note - Resident Providers to CC Resident Creating Document: REHANA HER, SELIN ~ Central Line/PICC still needed: N\A Antibiotic Timeout Antibiotic Ordered?: No Subjective Patient was examined at bedside. Your complained of pain and right lower quadrant radiating to his groin, rated the intensity as 3/10. No radiation to the back or no epigastric pain today. Pain well-controlled with morphine. No vomiting, diarrhea, fever, breathlessness. Not in acute distress. Objective Vital Signs Date Time Temp Pulse Resp B/P (MAP) Pulse Ox O2 Delivery O2 Flow Rate FiO2 05/18/25 10:00 97.6 67 18 124/82 (96) 99 Room Air 05/18/25 08:00 0.0 Result Diagram: 05/18/25 0256 05/18/25 0613 General: Awake, confused, not agitated, not in acute distress, following simple commands. Eye opening -spontaneous, verbal response-confused, motor response-obeys commands. GCS - 14/15 HEENT: Conjunctive are pink, sclerae clear, no icterus, pupil is equal in both sides, reactive to light, no ear discharge, no pharyngeal erythema or an edema. Neck: Supple, no JVD, no lymphadenopathy and thyromegaly. Chest: Equal air entry on both lungs, no additional sounds no rhonchi no wheezing at the moment. Cardiovascular: S1-S2 regular sinus rhythm and, regular rate, no gallops, no rubs, no murmurs Abdomen: No visible peristalsis, Bowel sounds present on auscultation, soft, nontender, no guarding, no rigidity Extremities: Normal, no swelling, no visible deformities. Peripheral pulses felt. Essential tremors in right hand. Central Nervous System: No sensory or motor symptoms. No focal neurological deficits. No cranial nerve deficits. Musculoskeletal: No joint swelling, deformities, inflammations, and no scoliosis and back tenderness Counseling Services Smoking & Tobacco Cessation: > 10 Minutes Assessment Assessment This is a 49-year-old male patient with past medical history of hepatitis-C, hiatal hernia, alcohol use disorder, methamphetamine/cocaine use disorder, presented to the ER for sudden severe (8/10 in intensity) periumbilical/right upper quadrant pain radiating to the right inguinal region. Plan Plan Acute pancreatitis, most likely from alcoholic etiology vs appendicitis [place]'s criteria 0 points on admission, BISAP 0 points No signs of severity Lipase > 375 WBC 8.1, Cr 1.08, BUN [address]: Mucosal thickening of the rectosigmoid colon which could be related to underdistention however, colitis is not excluded. Increased number of retroperitoneal lymph nodes measuring up to 9 mm in short axis. Ordered amylase, LDH, ESR, C-reactive protein, lactic acid 2000 mL of normal saline at presentation Hydration with lactated Ringer at 125 mL/hr Analgesia with Tylenol and morphine Ordered NPO. Progress to liquid diet as tolerated. 05/18/2025: LDH 248, lipase > 375, ESR 6, CRP 0.15, Triglyceride 97, cholesterol 130, LDL 81, HDL 39, cholesterol/ HDL ratio 3.3 Patient complains of right lower quadrant pain radiating to groin. Advance diet to liquid. If tolerated well, advance it to full liquid. Continue analgesia with Tylenol and morphine Ultrasound abdomen tomorrow morning, follow up on ultrasound pelvis report. Alcohol use disorder Cocaine use disorder Methamphetamine use disorder Ordered ethanol level, pending Ordered drug screen, pending Ordered social service and substance use navigator Alcohol abuse protocol in place History of hepatitis C, treated Ordered hepatitis panel and HIV antibody Hiatal hernia Ordered pantoprazole 40 mg daily Code Status: DNR DVT prophylaxis: Heparin Analgesia/sedation: Tylenol/Morphine Line/tube: PIV GI prophylaxis: Pantoprazole Nutrition: Regular diet Physical therapy: Yes Disposition: Continue medical management Rehana Her PGY1, Internal Medicine. Date of Service: May 18, 2025 Billing Provider: SIMON LAO MD, SHIVANI, RES May 18, 2025 18:35
[2025-05-18] MEDS ORDERED: diazepam inj 5 MG/ML inj. IV PRN (19:30)
--- NOTE | 2025-05-18 19:44 | RADIOLOGY REPORT ---
EXAM: US ULTRASOUND PELVIS W/ORWO DPLX CLINICAL HISTORY: Pain TECHNIQUE: Transabdominal ultrasound of the pelvis with color Doppler flow as clinically indicated. COMPARISON: CT CT ABDOMEN PELVIS W/ IV CONTRAST on DOS: 05/18/25, VL VENOUS on DOS: 11/03/22 Findings/Impression: No focal fluid collections, cystic or solid lesions. The appendix is not visualized. No hernia is appreciated. There is peristalsing bowel.
[2025-05-18 20:00] VITALS: RESP 16; O2SAT 95
[2025-05-18] MEDS: thiamine 100mg/ml 2ml inj. IV SCH (20:31)
[2025-05-18] MEDS: folic acid 1mg/0.2ml inj IV SCH (20:48)
[2025-05-18 22:00] VITALS: BP 134/72; PULSE 62; RESP 20; TEMP 98.1; O2SAT 99
[2025-05-19 06:00] VITALS: BP 122/76; PULSE 64; RESP 16; TEMP 97.9; O2SAT 98
[2025-05-19 07:36] LABS: CREATININE 1.02 MG/DL (0.60-1.10); PHOSPHORUS 2.8 MG/DL (2.3-4.5); TOTAL CARBON DIOXIDE 27.8 MMOL/L (24-32); eCRCL 77 ML/MIN; eGFR 77 ML/MIN
[2025-05-19 07:37] LABS: INR 1.0 INR
[2025-05-19] MEDS: nicotine 21mg patch - 24 hr TD SCH (08:00)
--- NOTE | 2025-05-19 09:20 | RADIOLOGY REPORT ---
INDICATION: Epigastric Pain TECHNIQUE: Multiple real-time sonographic images of the abdomen were obtained. COMPARISON: US ULTRASOUND PELVIS W/ORWO DPLX on DOS: 05/18/25, CT CT ABDOMEN PELVIS W/ IV CONTRAST on DOS: 05/18/25 FINDINGS: The liver is homogenous in echogenicity. The liver measures 16cm. No intrahepatic biliary ductal dilatation is noted. The gallbladder wall measures 0.2 cm and is unremarkable. No gallstones or sludge is seen. The commo n duct measures 0.4 cm and is unremarkable. No pericholecystic fluid is noted. The right kidney measures 10cm. No hydronephrosis. The pancreas is not well visualized due to obscuration from bowel gas. The visualized portions of the IVC and aorta are grossly unremarkable. IMPRESSION: Normal exam of the abdomen.
[2025-05-19 10:00] VITALS: BP 135/90; PULSE 82; RESP 18; TEMP 98.1; O2SAT 100
[2025-05-19 11:27] LABS: MEAN PLATELET VOLUME 9.0 FL (7.4-10.4)
[2025-05-19 11:29] LABS: RED CELL DISTRIBUTION WIDTH 13.9 % (11.5-14.5)
[2025-05-19] MEDS: HYDROcodone/acetaminophen 5mg/325mg tablet PO PRN (11:39)
[2025-05-19 18:00] VITALS: BP 129/85; PULSE 55; RESP 17; TEMP 98; O2SAT 96
--- NOTE | 2025-05-19 19:57 | PROGRESS NOTE- Residence ---
Progress Note - Resident Providers to CC Resident Creating Document: MICKEY HER RES ~ Central Line/PICC still needed: N\A Antibiotic Timeout Antibiotic Ordered?: No Subjective Patient was examined at bedside. The patient reports that he has been has improved today. No acute symptoms overnight Objective Vital Signs Date Time Temp Pulse Resp B/P (MAP) Pulse Ox O2 Delivery O2 Flow Rate FiO2 05/19/25 19:29 19 05/19/25 10:00 98.1 82 135/90 (105) 100 Room Air 05/19/25 08:00 0.0 Result Diagram: 05/19/25 1119 05/20/25 0506 General: Awake, confused, not agitated, not in acute distress, following simple commands. Eye opening -spontaneous, verbal response-confused, motor response-obeys commands. GCS - 14/15 HEENT: Conjunctive are pink, sclerae clear, no icterus, pupil is equal in both sides, reactive to light, no ear discharge, no pharyngeal erythema or an edema. Neck: Supple, no JVD, no lymphadenopathy and thyromegaly. Chest: Equal air entry on both lungs, no additional sounds no rhonchi no wheezing at the moment. Cardiovascular: S1-S2 regular sinus rhythm and, regular rate, no gallops, no rubs, no murmurs Abdomen: No visible peristalsis, Bowel sounds present on auscultation, soft, nontender, no guarding, no rigidity Extremities: Normal, no swelling, no visible deformities. Peripheral pulses felt. Essential tremors in right hand. Central Nervous System: No sensory or motor symptoms. No focal neurological deficits. No cranial nerve deficits. Musculoskeletal: No joint swelling, deformities, inflammations, and no scoliosis and back tenderness Coagulation Studies Laboratory Tests Test 05/19/25 06:54 Prothrombin Time 10.4 SECONDS (9.0-12.0) INR International Normalized Ratio 1.0 INR Coagulation Comments Assessment Assessment This is a 49-year-old male patient with past medical history of hepatitis-C, hiatal hernia, alcohol use disorder, methamphetamine/cocaine use disorder, presented to the ER for sudden severe (8/10 in intensity) periumbilical/right upper quadrant pain radiating to the right inguinal region. Plan Plan Acute pancreatitis, most likely from alcoholic etiology vs appendicitis [place]'s criteria 0 points on admission, BISAP 0 points No signs of severity Lipase > 375 WBC 8.1, Cr 1.08, BUN [address]: Mucosal thickening of the rectosigmoid colon which could be related to underdistention however, colitis is not excluded. Increased number of retroperitoneal lymph nodes measuring up to 9 mm in short axis. Ordered amylase, LDH, ESR, C-reactive protein, lactic acid 2000 mL of normal saline at presentation Hydration with lactated Ringer at 125 mL/hr Analgesia with Tylenol and morphine Ordered NPO. Progress to liquid diet as tolerated. 05/18/2025: LDH 248, lipase > 375, ESR 6, CRP 0.15, Triglyceride 97, cholesterol 130, LDL 81, HDL 39, cholesterol/ HDL ratio 3.3 Patient complains of right lower quadrant pain radiating to groin. Advance diet to liquid. If tolerated well, advance it to full liquid. Continue analgesia with Tylenol and morphine 05/19/2025: Advance to regular diet Ultrasound abdomen Normal exam of the abdomen. Alcohol use disorder Cocaine use disorder Methamphetamine use disorder Ordered ethanol level, pending Ordered drug screen, pending Ordered social service and substance use navigator Alcohol abuse protocol in place History of hepatitis C, treated Ordered hepatitis panel and HIV antibody Hiatal hernia Ordered pantoprazole 40 mg daily Code Status: DNR DVT prophylaxis: Heparin Analgesia/sedation: Tylenol/Morphine Line/tube: PIV GI prophylaxis: Pantoprazole Nutrition: Regular diet Physical therapy: Yes Disposition: Continue medical management Mickey Her PGY1, Internal Medicine. Addendum retroperitoneal lymphadenopathy, discussed with pt about need of outpt eval and pcp referral for oncology Date of Service: May 19, 2025 Billing Provider: SIMON LAO MD Common Visit Codes: [id number] INP/OBS CARE(HIGH) MICKEY HER, SELIN May 19, 2025 19:57 SIMON LAO MD May 20, 2025 06:26
[2025-05-19 20:00] VITALS: RESP 17; O2SAT 96
[2025-05-19 22:00] VITALS: BP 138/81; PULSE 70; RESP 16; TEMP 97.2; O2SAT 96
[2025-05-20 05:37] LABS: INR 1.0 INR
[2025-05-20 05:40] LABS: CREATININE 0.96 MG/DL (0.60-1.10); PHOSPHORUS 4.4 MG/DL (2.3-4.5); TOTAL CARBON DIOXIDE 31.1 MMOL/L (24-32); eCRCL 82 ML/MIN; eGFR 83 ML/MIN
[2025-05-20 06:49] VITALS: BP 116/77; PULSE 61; RESP 18; TEMP 97.5; O2SAT 95
[2025-05-20 07:06] LABS: MEAN PLATELET VOLUME 9.1 FL (7.4-10.4); RED CELL DISTRIBUTION WIDTH 13.8 % (11.5-14.5)
[2025-05-20 07:55] VITALS: RESP 16
[2025-05-20] MEDS: HYDROcodone/acetaminophen 5mg/325mg tablet PO PRN (08:13)
[2025-05-20 10:33] VITALS: BP 128/78; PULSE 74; RESP 18; TEMP 97.9; O2SAT 97
[2025-05-20 11:12] LABS: % FREE PSA 16.9 % (.); PROSTATE SPECIFIC AG, SERUM 1.3 ng/mL (0.0-4.0)
--- NOTE | 2025-05-20 12:35 | PROGRESS NOTE- Residence ---
Progress Note - Resident Providers to CC Resident Creating Document: REHANA HER, SELIN ~ Central Line/PICC still needed: N\A [place]-Non Protocol [place] Indications Met/Not Met: F/C Indications Not Met Antibiotic Timeout Antibiotic Ordered?: No Subjective Patient was examined at bedside. He complains of pain, 6/10, in his right lower quadrant radiating towards right groin especially when he passes urine. The pain is controlled with medications-Palmer. No complaints of burning micturition, fever, nausea, blood in urine. No acute symptoms overnight. Objective Vital Signs Date Time Temp Pulse Resp B/P (MAP) Pulse Ox O2 Delivery O2 Flow Rate FiO2 05/20/25 10:33 97.9 74 18 128/78 (95) 97 Room Air 05/20/25 07:55 0.0 Result Diagram: 05/20/25 0652 05/20/25 0502 General: Awake, confused, not agitated, not in acute distress, following simple commands. Eye opening -spontaneous, verbal response-confused, motor response-obeys commands. GCS - 14/15 HEENT: Conjunctive are pink, sclerae clear, no icterus, pupil is equal in both sides, reactive to light, no ear discharge, no pharyngeal erythema or an edema. Neck: Supple, no JVD, no lymphadenopathy and thyromegaly. Chest: Equal air entry on both lungs, no additional sounds no rhonchi no wheezing at the moment. Cardiovascular: S1-S2 regular sinus rhythm and, regular rate, no gallops, no rubs, no murmurs Abdomen: No visible peristalsis, Bowel sounds present on auscultation, soft, nontender, no guarding, no rigidity Extremities: Normal, no swelling, no visible deformities. Peripheral pulses felt. Essential tremors in right hand. Central Nervous System: No sensory or motor symptoms. No focal neurological deficits. No cranial nerve deficits. Musculoskeletal: No joint swelling, deformities, inflammations, and no scoliosis and back tenderness Coagulation Studies Laboratory Tests Test 05/20/25 05:06 Prothrombin Time 10.6 SECONDS (9.0-12.0) INR International Normalized Ratio 1.0 INR Coagulation Comments Assessment Assessment This is a 49-year-old male patient with past medical history of hepatitis-C, hiatal hernia, alcohol use disorder, methamphetamine/cocaine use disorder, presented to the ER for sudden severe (8/10 in intensity) periumbilical/right upper quadrant pain radiating to the right inguinal region. Plan Plan Acute pancreatitis, most likely from alcoholic etiology vs appendicitis [place]'s criteria 0 points on admission, BISAP 0 points No signs of severity Lipase > 375 WBC 8.1, Cr 1.08, BUN [address]: Mucosal thickening of the rectosigmoid colon which could be related to underdistention however, colitis is not excluded. Increased number of retroperitoneal lymph nodes measuring up to 9 mm in short axis. Ordered amylase, LDH, ESR, C-reactive protein, lactic acid 2000 mL of normal saline at presentation Hydration with lactated Ringer at 125 mL/hr Analgesia with Tylenol and morphine Ordered NPO. Progress to liquid diet as tolerated. 05/18/2025: LDH 248, lipase > 375, ESR 6, CRP 0.15, Triglyceride 97, cholesterol 130, LDL 81, HDL 39, cholesterol/ HDL ratio 3.3 Patient complains of right lower quadrant pain radiating to groin. Advance diet to liquid. If tolerated well, advance it to full liquid. Continue analgesia with Tylenol and morphine 05/19/2025: Advance to regular diet Ultrasound abdomen Normal exam of the abdomen. 05/20/2025: Tolerating regular diet WBC 5.5, amylase 63, lipase 46. Pain control with Palmer q.4 hours PRN Informed social science analyst to refer the patient to Heme-Onc on outpatient basis for his retroperitoneal lymph nodes. Alcohol use disorder Cocaine use disorder Methamphetamine use disorder Ethyl alcohol levels <10 Urine tox positive for amphetamine and cocaine Ordered social service and substance use navigator Alcohol abuse protocol in place History of hepatitis C, treated Ordered hepatitis panel and HIV antibody Hiatal hernia Ordered pantoprazole 40 mg daily Code Status: DNR DVT prophylaxis: Heparin Analgesia/sedation: [place] Line/tube: PIV GI prophylaxis: Pantoprazole Nutrition: Regular diet Physical therapy: Ordered Disposition: Continue medical management Rehana Her PGY1, Internal Medicine. Date of Service: May 20, 2025 Billing Provider: SIMON LAO MD,REHANA, RES May 20, 2025 12:35
--- NOTE | 2025-05-20 14:26 | DISCHARGE SUMMARY-Residence ---
Discharge Summary Providers to CC Resident Creating Document: MYRIAMSELIN AREVALO ~ Discharge Summary Admission Diagnosis: PANCREATITIS Hospital Course DATE OF ADMISSION: 05/18/2025 DATE OF DISCHARGE: 05/20/2025 Discharge Diagnosis\Comment: Acute pancreatitis most likely from alcoholic etiology Multiple nonobstructing bilateral renal stones Alcohol use disorder Cocaine use disorder Methamphetamine use disorder Hiatal hernia Hepatitis-C, treated Operations\Procedures: None Consultants: None Complications: None Condition on DC: Stable Discharge Summary: History of present illness: This is a 49-year-old male patient with past medical history of treated hep atitis-C,hiatal hernia, alcohol use disorder, methamphetamine/cocaine use disorder, presented to the ER for sudden severe (8/10 in intensity) periumbilical/right upper quadrant pain radiating to the right inguinal region that started yesterday around 7 p.m. Patient has had similar episodes of pain in the past but not as severe as it was yesterday. There is no associated nausea, vomiting, diarrhea or fever. He also denies chest pain or shortness for breath. The pain has subsided after initial treatment and he denies any other symptoms. Patient drinks approximately five shots daily. Hospital course: The patient was treated for acute pancreatitis with fluid resuscitation, pain management with [place] and PPI with Protonix 40 mg. His diet was advanced from liquid to full liquid to regular diet and he is tolerating it well. He reported his symptoms are better now. Lipase levels 46 and amylase 63, WBC 5.5. He complained about right lower quadrant abdominal pain radiating to his groin, intermittent, especially when he passes urine. He was found to have multiple bilateral nonobstructive renal stones which was controlled with [place]. A substance use navigator was involved for his polysubstance use disorder. Vital Signs Date Time Temp Pulse Resp B/P (MAP) Pulse Ox O2 Delivery O2 Flow Rate FiO2 05/20/25 10:33 97.9 74 18 128/78 (95) 97 Room Air 05/20/25 07:55 0.0 Physical examination: General: Awake and Alert, no acute distress. HEENT: Conjunctiva pink, Sclera clear, Mucus Membranes moist. Neck: Supple without masses and tenderness. Resp: Unlabored. Lungs clear to auscultation bilaterally. Heart: Regular Rate and rhythm, normal S1 and S2 without murmur, rub or gallop. Abdomen: Mildly tender in periumbilical region. Abdomen is soft and nondistended. Positive bowel sounds. No guarding or rebound. No hepatosplenomegaly or palpable masses. Extremities: No cyanosis,clubbing or edema. Skin: Warm and Dry. Laboratory Tests Test 05/19/25 06:54 05/19/25 11:19 05/20/25 05:06 05/20/25 06:52 CBC Comment Prothrombin Time 10.4 SECONDS 10.6 SECONDS INR International Normalized Ratio 1.0 INR 1.0 INR Coagulation Comments Sodium Level 138 MMOL/L 141 MMOL/L Potassium Level 4.2 MMOL/L 3.9 MMOL/L Chloride Level 105 MMOL/L 105 MMOL/L Carbon Dioxide Level 27.8 MMOL/L 31.1 MMOL/L Anion Gap 5 5 Blood Urea Nitrogen 7 MG/DL 12 MG/DL Creatinine 1.02 MG/DL 0.96 MG/DL Estimated GFR/1.73 m2 77 ML/MIN 83 ML/MIN BUN/Creatinine Ratio 6.9 12.5 Glucose Level 99 MG/DL 101 MG/DL Calcium Level 8.6 MG/DL 8.8 MG/DL Phosphorus Level 2.8 MG/DL 4.4 MG/DL Magnesium Level 1.8 MG/DL 1.8 MG/DL Total Bilirubin 1.1 MG/DL 0.8 MG/DL Aspartate Amino Transf (AST/SGOT) 17 U/L 17 U/L Alanine Aminotransferase (ALT/SGPT) 22 U/L 19 U/L Alkaline Phosphatase 77 IU/L 72 IU/L Total Protein 6.6 G/DL 6.3 G/DL Albumin 3.2 G/DL 3.0 G/DL Globulin 3.4 G/DL 3.3 G/DL Albumin/Globulin Ratio 0.9 0.9 Amylase Level 69 U/L 63 U/L Lipase 39 U/L 46 U/L Chemistry Comments White Blood Count 4.8 X10'3 5.5 X10'3 Red Blood Count 5.19 X10'6 5.29 X10'6 Hemoglobin 15.6 g/dl 15.9 g/dl Hematocrit 45.9 % 46.9 % Mean Corpuscular Volume 88.5 FL 88.6 FL Mean Corpuscular Hemoglobin 30.1 PG 30.1 PG Mean Corpuscular Hemoglobin Concent 34.0 g/dL 34.0 g/dL Red Cell Distribution Width 13.9 % 13.8 % Platelet Count 199 X10'3 196 X10'3 Mean Platelet Volume 9.0 FL 9.1 FL Neutrophils (%) (Auto) 60.4 % 52.5 % Lymphocytes (%) (Auto) 27.2 % 31.8 % Monocytes (%) (Auto) 7.0 % 8.7 % Eosinophils (%) (Auto) 4.7 % 6.0 % Basophils (%) (Auto) 0.7 % 1.0 % Neutrophils # (Auto) 2.9 X10'3 2.9 X10'3 Lymphocytes # (Auto) 1.3 X10'3 1.7 X10'3 Monocytes # (Auto) 0.3 X10'3 0.5 X10'3 Eosinophils # (Auto) 0.2 X10'3 0.3 X10'3 Basophils # (Auto) 0.0 X10'3 0.1 X10'3 Imaging: Abdominal ultrasound:Normal exam of the abdomen. Pelvic ultrasound:No focal fluid collections, cystic or solid lesions. The appendix is not visualized. No hernia is appreciated. There is peristalsing bowel. Abdominal and pelvis CT: 1. Mucosal thickening of the rectosigmoid colon which could be related to underdistention however, colitis is not excluded. 2. Increased number of retroperitoneal lymph nodes measuring up to 9 mm in short axis. Etiology is uncertain. Correlation with patient's symptoms as well as laboratory values recommended. 3. Nonobstructive bilateral intrarenal calculi. 4. Prostatomegaly. Discharge course: The patient has been discharged in stable condition. He Is instructed to follow up with his primary care physician and personal lines account manager oncologist outpatient in one week. route sales manager was involved and he was referred to a personal lines account manager and oncologist for his multiple retrosternal lymph node which was found incidentally on abdominal CT. He is instructed to return to ER in case of any acute symptoms including not tolerable abdominal pain, fever, vomiting, burning micturition. *Problems/Diagnosis: (1) Cocaine abuse Status: Acute (2) Alcohol abuse Status: Acute (3) Hiatal hernia Status: Chronic (4) Renal calculus Status: Chronic (5) Hepatitis C virus infection cured after antiviral drug therapy Status: Resolved (6) Methamphetamine abuse Status: Acute (7) Pancreatitis Status: Acute Total Time Spent on D/C: > 30 Minutes Counseling Services Smoking & Tobacco Cessation: > 10 Minutes Date of Service: May 20, 2025 Billing Provider: SIMON LAO MD Common Visit Codes: 02665-AIZ/OBS DISCH DAY >30min MICKEY MIGUEL, RES May 20, 2025 14:24 MAYI FREEMAN, RES May 20, 2025 19:55 SIMON LAO MD May 21, 2025 07:02
[2025-05-21 05:22] LABS: HBSAG SCREEN Negative (Negative); HEPATITIS C VIRUS ANTIBODY Reactive (Non Reactive)
[2025-05-21 05:22] LABS: HEP B CORE AB, IGM Negative (Negative)
[2025-05-21] MEDS ORDERED: HYDR-3965 PO (07:13)
== END 2025-05-20 14:50 | disposition home or self-care (01) | DRG 282 ==
LOC: ER 02:47 → ED HOLD 04:41 → EDBEDREQ 06:27 → SUR 3N 07:00
PROVIDERS: ADMIT Internal Medicine Critical Care Medicine; ATTEND Internal Medicine
PROC: BW211ZZ Computerized Tomography (CT Scan) of Abdomen and Pelvis using Low Osmolar Contrast (ICD-10-PCS; principal; 2025-05-18)
DX: K85.20 Alcohol induced acute pancreatitis without necrosis or infection (principal); F10.90 Alcohol use, unspecified, uncomplicated; F14.90 Cocaine use, unspecified, uncomplicated; G89.29 Other chronic pain; M54.9 Dorsalgia, unspecified; K21.9 Gastro-esophageal reflux disease without esophagitis; Y90.9 Presence of alcohol in blood, level not specified; F15.90 Other stimulant use, unspecified, uncomplicated; N20.0 Calculus of kidney; K44.9 Diaphragmatic hernia without obstruction or gangrene; Z66 Do not resuscitate; R59.0 Localized enlarged lymph nodes; Z79.899 Other long term (current) drug therapy; Z83.3 Family history of diabetes mellitus; Z88.5 Allergy status to narcotic agent
CPT/HCPCS: 36415; 74177; 76700; 76857; 80053; 80061; 80305; 80320; 81003; 82150; 83605; 83615; 83690; 83735; 84100; 84132; 84153; 84154; 85025; 85610; 85651; 86140; 86703; 86705; 86803; 87081; 87340; 87522; 96372; 96374; 96375; 99285; G0378; J1644; J1885; J2270; J2405; J2470; J3010; J3411; J3490; J7030; J7120; Q9967

== ENCOUNTER 2025-06-06 22:28 | Emergency (ER) | payer MEDICAID ==
[~2025-06-06] VITALS: Ht 170.2 cm; Wt 86.9 kg
[~2025-06-06 22:28] MED LIST changes: -AZIT500T9 PO; -BENZ200C53 PO; -CEFD300C3 PO; -GABA-1405 PO; +HYDR-3965 PO; +NO HOME MEDS; -OMEP20CA15 PO; -OMEP20CA16 PO
[2025-06-06 22:59] LABS: MEAN PLATELET VOLUME 8.9 FL (7.4-10.4); RED CELL DISTRIBUTION WIDTH 13.5 % (11.5-14.5)
[2025-06-06 23:12] LABS: CREATININE 1.11 MG/DL (0.60-1.10); TOTAL CARBON DIOXIDE 27.9 MMOL/L (24-32); eCRCL 74 ML/MIN; eGFR 70 ML/MIN
[2025-06-07 01:41] LABS: ETHANOL < 10 MG/DL (<10)
--- NOTE | 2025-06-07 02:06 | Physician Documentation ---
History of Present Illness Chief Complaint: Abdominal Pain Stated Complaint: FLARE UP OF PANCREATITIS Time Seen by MD: 00:27 OK to notify your PCP?: Yes Primary Medical Doctor: [facility] Source: patient, RN/, RN notes reviewed, old records Mode of Arrival: Ambulatory Exam Limitations: no limitations HPI Patient states that he has been having abdominal pain for about a day. He did have one beer at noon today, it was a life beer. He states like last time he is having right lower quadrant pain. But last time he took was told he had significant pancreatitis. The pain is colicky comes and goes. He denies any diarrhea at this time but did have some yesterday. Denies any fevers or chills and denies vomiting he is here for evaluation. Medication Reconciliation Allergies: Coded Allergies: codeine (Verified Allergy, Unknown, vomiting, 02/09/25) Scheduled Dicyclomine Hcl* (Bentyl*), 1 CAP PO Q8H Scheduled PRN Hydrocodone Bit/Acetaminophen 5/325 MG ([place] 5/325 MG), 1 TAB PO Q6H PRN for pain Miscellaneous Medications Home Med List (No Home Medications), (Reported) Past Medical History Past Medical History: Pneumonia, GERD, Chronic Pain, Chronic Back Pain Past Surgical History: orthopedic surgeries Patient History: FH: cancer FATHER FH: diabetes mellitus MOTHER FH: skin cancer MOTHER Smoking Status: Current every day smoker Alcohol Use: Abuse Drug Use: methamphetamine, cocaine, other Lives In: Homeless Occupation: unemployed Review of Systems All Other Systems at this time: Reviewed and Negative Physical Exam Vital Signs: RN Vital Signs have been reviewed: Yes, Temperature: 98.5, Source: Oral, Heart Rate: 99, Respiratory Rate: 17, BP: 134/89, Pulse Oximetry: 96, Weight: 86.900 Oxygen Flow Rate: 0 Physical Exam General: The patient is well developed, well nourished, nontoxic appearing and is in no acute distress. Skin: [place], warm and dry with no rashes. HEENT: Head was normocephalic and atraumatic. Eyes - pupils equal, round, reactive to light and accommodation. Extraocular movements were intact. Conjunctivae were nonicteric. The mouth and oropharynx were clear with moist mucous membranes. Neck: Supple and nontender. There was no jugular venous distention, Chest: Clear to auscultation bilaterally without wheezes, rales or rhonchi. No accessory muscle use. Heart: Rate regular and rhythmic. S1, S2. No murmurs. Palpation of the chest wall was normal Abdomen: Soft and nondistended. Positive increased bowel sounds. No guarding or rebound. No hepatosplenomegaly or palpable masses. Mild right lower quadrant abdominal pain to palpation Extremities: No cyanosis, clubbing or edema. The patient moves all extremities. Pulses were equal and symmetric. Neurologic: Cranial nerves II-XII were intact. Sensation was intact to light touch throughout. Motor strength was 5/5 in all four extremities. Deep tendon reflexes were intact in both upper and lower extremities. Psychologic: The patient was oriented to person, place and time. The patient demonstrated appropriate judgement and insight. Progress Results/Orders Reviewed/noted all lab results: Yes Results/Orders Orders - REILLY ESCOTO MD Urinalysis, Cult If Indicated (06/06/25 22:30) Completed Orders - REILLY ESCOTO MD Cbc/Diff (06/06/25 22:30) Lipase (06/06/25 22:30) CMP (06/06/25 22:30) Acetaminophen 325mg Tablet (Tylenol Tabl (06/07/25 00:25) Ethanol (06/06/25 22:48) MG (06/06/25 22:48) Medications Received in ER Medications (Trade) Dose Ordered Sig/June Route PRN Reason Start Time Stop Time Status Last Admin Dose Admin (Tylenol tablet) 650 mg ONCE ONCE PO 06/07/25 00:25 06/07/25 00:26 DC 06/07/25 00:28 650 MG Vital Signs 06/06/25 06/06/25 06/07/25 06/07/25 22:37 23:30 00:16 00:37 Temp 98.5 98.5 98.5 Pulse 111 107 102 Resp 16 18 18 17 B/P (MAP) 139/94 141/92 (108) 138/90 (106) Pulse Ox 97 96 97 O2 Flow Rate 0 0 0 06/07/25 01:15 Temp 98.5 Pulse 99 Resp 17 B/P (MAP) 134/89 (104) Pulse Ox 96 O2 Flow Rate 0 Laboratory Tests Test 06/06/25 22:48 White Blood Count 6.9 Red Blood Count 4.94 Hemoglobin 14.9 Hematocrit 43.2 Mean Corpuscular Volume 87.4 Mean Corpuscular Hemoglobin 30.3 Mean Corpuscular Hemoglobin Concent 34.6 Red Cell Distribution Width 13.5 Platelet Count 233 Mean Platelet Volume 8.9 Neutrophils (%) (Auto) 66.9 Lymphocytes (%) (Auto) 21.9 Monocytes (%) (Auto) 9.2 Eosinophils (%) (Auto) 1.3 Basophils (%) (Auto) 0.7 Neutrophils # (Auto) 4.6 Lymphocytes # (Auto) 1.5 Monocytes # (Auto) 0.6 Eosinophils # (Auto) 0.1 Basophils # (Auto) 0.0 CBC Comment Sodium Level 140 Potassium Level 3.7 Chloride Level 105 Carbon Dioxide Level 27.9 Anion Gap 7 L Blood Urea Nitrogen 10 Creatinine 1.11 H Estimated GFR/1.73 m2 70 BUN/Creatinine Ratio 9.0 L Glucose Level 92 Calcium Level 9.2 Magnesium Level 2.0 Total Bilirubin 1.3 H Aspartate Amino Transf (AST/SGOT) 19 Alanine Aminotransferase (ALT/SGPT) 33 Alkaline Phosphatase 81 Total Protein 7.6 Albumin 4.2 Globulin 3.4 Albumin/Globulin Ratio 1.2 Lipase 30 Chemistry Comments Ethyl Alcohol Level < 10 Re-Evaluation Re-Evaluation : Re-Evaluation: Improved Progress Patient was seen and examined. Patient is given reassurance. Patient laboratory work was reassuring there was no signs of pancreatitis. CBC is within normal limits no leukocytosis anemia or left shift. Chemistry also within normal limits bilirubin slightly elevated at 1.3 but normal LFTs and normal lipase. Electrolytes were also within normal limits. Alcohol level is n egative. Patient was given reassurance. He received [place] 5 mg as well as Bentyl. Patient's heart rate is on the bit high side. Patient denies using any drugs. His heart rate is now under 100 he was given a prescription and discharged home. Continuous topline beading machine tender interpretation shows sinus tachycardia heart rate 110s, abnormal, my interpretation currently high 90s, normal, my interpretation. Pulse oximetry monitor interpretation shows normal oxygenation at 97% room air, normal, my interpretation. Medical Decision Making Additional info obtained from: old records Differential Dx:Considerations: Include: Appendicitis, Bowel obstruction, Cholangitis, Constipation, Diverticular disease, Esophageal rupture, Esophagitis, Gastritis/PUD, Gastroenteritis, GI hemorrhage, Hernia, Hepatitis, Inflammatory BD, Ischemic bowel, Pancreatitis, Urinary tract infection, Urolithiasis, Other Departure Disposition: HOME / SELF CARE / HOMELESS Impression: Primary Impression: Abdominal pain Qualified Codes: R10.31 - Right lower quadrant pain Condition: Stable Discharge Instructions: Abdominal Pain (Nonspecific) Referrals: NO PRIMARY CARE PROVIDER (PCP) Prescriptions Dicyclomine Hcl* (Bentyl*) 10 Mg Capsule 1 CAP PO Q8H for irritable bowel symptoms for 5 Days, #15 CAP Prov: REILLY ESCOTO MD 06/07/25 Education Educated: Patient Educated regarding: diagnosis, need for follow up, other Signature Scribe Signature: . Attestation: The note accurately reflects work and decisions made by me.Reilly Escoto MD 06/07/25 02:06 REILLY ESCOTO MD Jun 07, 2025 02:06
[2025-06-07] MEDS ORDERED: DICY10CA88 PO (02:23)
[2025-06-07] MEDS: HYDROcodone/acetaminophen 5mg/325mg tablet PO ONE (03:12)
[2025-06-07 03:20] VITALS: BP 142/88; PULSE 91; RESP 17; TEMP 98.5; O2SAT 98
== END 2025-06-07 03:22 | disposition home or self-care (01) ==
LOC: ER 22:29
DX: R10.31 Right lower quadrant pain (principal); K21.9 Gastro-esophageal reflux disease without esophagitis; F17.200 Nicotine dependence, unspecified, uncomplicated; F15.90 Other stimulant use, unspecified, uncomplicated; Z88.5 Allergy status to narcotic agent; Z79.899 Other long term (current) drug therapy
CPT/HCPCS: 36415; 80053; 80320; 83690; 83735; 85025; 99285

== ENCOUNTER 2025-08-25 14:07 | Emergency (ER) | payer MEDICAID ==
[~2025-08-25] VITALS: Ht 170.2 cm; Wt 87.6 kg
[~2025-08-25 14:07] MED LIST changes: -HYDR-3965 PO
[2025-08-25 14:27] VITALS: BP 157/95; PULSE 88; RESP 16; TEMP 97.1; O2SAT 98
[2025-08-25 14:45] LABS: MEAN PLATELET VOLUME 8.0 FL (7.4-10.4); RED CELL DISTRIBUTION WIDTH 13.6 % (11.5-14.5)
[2025-08-25 15:02] LABS: CREATININE 1.03 MG/DL (0.60-1.10); TOTAL CARBON DIOXIDE 28.1 MMOL/L (24-32); eCRCL 79 ML/MIN; eGFR 76 ML/MIN
--- NOTE | 2025-08-25 16:27 | Physician Documentation ---
History of Present Illness ~ Chief Complaint: Abdominal Pain Stated Complaint: ABD PAIN Primary Medical Doctor: [facility] 49-year-old male greeted in triage where received medical screening examination with complaints of right lower quadrant and groin pain. No associated fever and nausea and vomiting or recent illness or injury. Does reports similar symptoms in the past. Medication Reconciliation Allergies: Coded Allergies: codeine (Verified Allergy, Unknown, vomiting, 08/25/25) Miscellaneous Medications Home Med List (No Home Medications), (Reported) Past Medical History Past Medical History: Pneumonia, GERD, Chronic Pain, Chronic Back Pain Past Surgical History: orthopedic surgeries Patient History: FH: cancer FATHER FH: diabetes mellitus MOTHER FH: skin cancer MOTHER Alcohol Use: Abuse Drug Use: methamphetamine, cocaine, other Lives In: Homeless Occupation: unemployed Physical Exam Vital Signs: Temperature: 97.1, Source: Temporal, Heart Rate: 88, Respiratory Rate: 16, BP: 157/95, Pulse Oximetry: 98, Weight: 87.600 Oxygen Flow Rate: 0 Progress Results/Orders Results/Orders Vital Signs 08/25/25 14:27 Temp 97.1 Pulse 88 Resp 16 B/P (MAP) 157/95 Pulse Ox 98 O2 Flow Rate 0 Laboratory Tests Test 08/25/25 14:37 White Blood Count 6.0 Red Blood Count 5.18 Hemoglobin 15.4 Hematocrit 44.4 Mean Corpuscular Volume 85.7 Mean Corpuscular Hemoglobin 29.7 Mean Corpuscular Hemoglobin Concent 34.7 Red Cell Distribution Width 13.6 Platelet Count 242 Mean Platelet Volume 8.0 Neutrophils (%) (Auto) 60.0 Lymphocytes (%) (Auto) 25.7 Monocytes (%) (Auto) 9.4 Eosinophils (%) (Auto) 4.3 Basophils (%) (Auto) 0.6 Neutrophils # (Auto) 3.6 Lymphocytes # (Auto) 1.5 Monocytes # (Auto) 0.6 Eosinophils # (Auto) 0.3 Basophils # (Auto) 0.0 CBC Comment Sodium Level 140 Potassium Level 4.1 Chloride Level 105 Carbon Dioxide Level 28.1 Anion Gap 7 L Blood Urea Nitrogen 11 Creatinine 1.03 Estimated GFR/1.73 m2 76 BUN/Creatinine Ratio 10.7 Glucose Level 105 H Calcium Level 8.7 Total Bilirubin 0.9 Aspartate Amino Transf (AST/SGOT) 17 Alanine Aminotransferase (ALT/SGPT) 24 Alkaline Phosphatase 99 Total Protein 7.6 Albumin 4.0 Globulin 3.6 Albumin/Globulin Ratio 1.1 Lipase 39 Chemistry Comments Medical Decision Making Findings 49-year-old male present in the emergency department with a abdominal discomfort. Medical screening examination completed. Patient to have labs obtained and awaits further evaluation at the bedside for complete comprehensive emergency department workup. Diff Dx GI Bleed:Consideration: Include: AE fistula, Angiodysplasia, Bleeding diathesis, Blood loss anemia, Carcinoma, Diverticulosis, Diverticulitis, Esophageal varicies, Esophagitis, Gastritis, Gastroenteritis, Inflammatory BD, Denisha-Lozada syndrome, Meckel's diverticulum, PUD, Other Departure Referrals: NO PRIMARY CARE PROVIDER (PCP) CHANTELLE SNEED PAC Aug 25, 2025 16:27
== END 2025-08-25 18:33 | disposition left against medical advice (07) ==
LOC: ER 14:08
DX: R10.31 Right lower quadrant pain (principal); F15.90 Other stimulant use, unspecified, uncomplicated; F14.90 Cocaine use, unspecified, uncomplicated; K21.9 Gastro-esophageal reflux disease without esophagitis; Z88.5 Allergy status to narcotic agent
CPT/HCPCS: 36415; 80053; 83690; 85025; 99283